=== PATIENT | male | born 1985 | race Caucasian/White ===

== ENCOUNTER 2017-09-09 18:57 | Emergency (ER) | payer MEDICAID ==
[~2017-09-09] VITALS: Ht 177.8 cm; Wt 84.3 kg
[2017-09-10] MEDS ORDERED: SULFAMETHOXAZOLE/TRIMETHOPRIM 800/160MG TABLET PO ONE (02:30)
[2017-09-10] MEDS ORDERED: LIDOCAINE HCL 1%/EPI 1:200,000 30 ML VIAL MC ONE (02:30)
[2017-09-10] MEDS ORDERED: CEPHALEXIN 500MG CAPSULE PO ONE (02:30)
[2017-09-10 04:00] VITALS: BP 129/84
== END 2017-09-10 04:30 | disposition home or self-care (01) ==
LOC: ER 20:35
DX: L02.415 Cutaneous abscess of right lower limb (principal); F11.10 Opioid abuse, uncomplicated; F17.200 Nicotine dependence, unspecified, uncomplicated
CPT/HCPCS: 10060; 99284; Z7610

== ENCOUNTER 2017-09-12 10:19 | Emergency (ER) | payer MEDICAID ==
[~2017-09-12] VITALS: Ht 175.3 cm; Wt 4.0 kg
[2017-09-12 12:49] VITALS: BP 112/65
== END 2017-09-12 12:51 | disposition home or self-care (01) ==
LOC: ER 12:41
DX: Z48.00 Encounter for change or removal of nonsurgical wound dressing (principal); F17.200 Nicotine dependence, unspecified, uncomplicated; F12.10 Cannabis abuse, uncomplicated
CPT/HCPCS: 99283

== ENCOUNTER 2023-03-26 16:22 | Emergency (ER) | payer MEDICAID ==
[~2023-03-26] VITALS: Ht 180.3 cm; Wt 112.0 kg
[2023-03-26 16:41] VITALS: BP 134/82; PULSE 99; RESP 18; TEMP 98.2; O2SAT 96
[2023-03-26] MEDS ORDERED: L25 MT (19:39)
[2023-03-26] MEDS ORDERED: CLOT15CR27 TP (19:39)
[2023-03-26] MEDS ORDERED: MUPI15CR11 TP (19:39)
[2023-03-26 20:19] LABS: CHLORIDE 97 mEq/L (98-107); DIFFERENTIAL COMMENT 1; HEMATOCRIT. 41.3 % (42.0-52.0); HEMOGLOBIN. 14.5 g/dL (14.0-18.0); INDEX HEMOLYSI 1 (1-3); INDEX ICTERIC 1 (1-4); INDEX LIPEMIC 1 (1-3); MEAN CORPUSCULAR HEMOGLOBIN 32.4 pg (28.0-32.0); MEAN CORPUSCULAR HGB CONC 35.2 g/dL (31.0-37.0); MEAN CORPUSCULAR VOLUME 92.1 fL (80.0-94.0); MEAN PLATELET VOLUME 9.7 fl (7.4-10.4); PLATELET 167 x1000/uL (130-400); RED BLOOD CELL COUNT 4.48 mill/uL (4.7-6.1); RED CELL DISTRIBUTION WIDTH 12.9 % (11.6-14.6); SODIUM 134 mEq/L (136-145); WHITE BLOOD COUNT 7.3 x1000/uL (4.5-11.0)
[2023-03-26 20:28] LABS: ALANINE AMINOTRANSFERASE 172 IU/L (13-61); ALBUMIN 3.9 g/dL (3.4-5.0); ASPARTATE AMINOTRANSFERASE 221 IU/L (15-37); BILIRUBIN TOTAL 0.8 mg/dL (0.1-1.0); CALCIUM 8.9 mg/dL (8.5-10.1); CARBON DIOXIDE 27 mEq/L (21-32); CREATININE 0.8 mg/dL (0.6-1.3); GLUCOSE 99 mg/dL (70-105); PROTEIN TOTAL 8.4 g/dL (6.0-8.3); UREA NITROGEN BLOOD 18 mg/dL (7-21)
[2023-03-26 20:37] LABS: POTASSIUM 2.8 mEq/L (3.5-5.1)
[2023-03-26 20:51] LABS: PLATELET ESTIMATE NORMAL
== END 2023-03-26 22:21 | disposition home or self-care (01) ==
LOC: ER 16:22
DX: F10.239 Alcohol dependence with withdrawal, unspecified (principal); B37.9 Candidiasis, unspecified; Y90.9 Presence of alcohol in blood, level not specified
CPT/HCPCS: 36415; 80053; 85025; 99283